=== PATIENT | female | born 2005 | race Caucasian/White ===

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

== ENCOUNTER 2025-08-10 14:05 | Emergency (ER) | payer BC, SELFPAY ==
[2025-08-10 14:15] VITALS: BP 154/93; PULSE 90; RESP 16; TEMP 36.9; O2SAT 98; BMI 24.0
--- NOTE | 2025-08-10 14:24 | ED_ITS ---
HPI - Abdominal Pain General Time Seen by Provider: 14:26 Date Seen: 08/10/25 Chief Complaint: Abdominal Pain Stated Complaint: L abdomen/back pain Time Seen by Provider: 08/10/25 14:15 Source: patient and RN notes reviewed Mode of arrival: ambulatory Limitations: no limitations History of Present Illness HPI narrative: This 19-year-old female is coming in with left lower abdominal and back pain started about 3 hours ago. It is associated with nausea but no vomiting. She notes pain increases with standing and walking. She is on oral contraceptives. She just finished her menstrual cycle yesterday. She has had no prior abdominal surgeries, no history of kidney stones or ovarian cyst. Mom whom is present has had both kidney stones and ovarian cysts. We did review that it usually contraceptives help decrease ovarian cyst development. Mom states she has polycystic ovarian syndrome. Patient has noted no fevers. Symptoms started this morning, she did have a bowel movement around 11:00 a.m. and felt a little better but it has not overall diminished her pain much. She did have a light lunch, states she did feel hungry, eating did not worsen her symptoms. She has noted no diarrhea. She has noted no change in urination such as dysuria, hematuria, no urinary changes. Pain is in the left lower abdomen to left mid abdomen, will radiate into the back, radiate down towards the pelvis and sometimes more towards the upper center part of her abdomen. MD elicited complaint: abdominal pain Related Data Home Medications ?Medication ?Instructions ?Recorded ?Confirmed norelgestromin 150 mcg-e.estradiol patch 07/14/2212/28 35 mcg/24 hr weekly transderm patch (Xulane) Allergies Allergy/AdvReac Type Severity Reaction Status Date / Time No Known Drug Allergies Allergy Verified 08/10/25 14:13 Review of Systems Status of ROS Reports: 6 or more systems reviewed and unremarkable except as noted in History and below [facility] Social History Smoking Status: Never smoker Do you use any of these nicotine containing products: None How often do you have a drink containing alcohol: never AUDIT-C Alcohol total score: 0 Non-prescribed substance use: denies use Exam Const: Vital Signs, click to edit/add: Vital Signs - 24 hr 08/10/25 14:15 Temperature 98.4 F Pulse Rate [Pulse Oximeter] 90 Respiratory Rate 16 Blood Pressure [Ri ght Upper Arm] 154/93 H Pulse Oximetry 98 Oxygen Delivery Me thod Room Air This 19-year-old female is alert, interactive, no apparent distress. Sitting in the bed in exam room 7. She is very pleasant, speech is normal. Sclera clear, symmetric facial function. Lungs are clear, good air entry, wheeze or crackles, no tachypnea. CV regular rate and rhythm, no murmur. Abdomen is soft, nondistended, no organomegaly, normal bowel sounds. She has left mid to lower quadrant abdominal tenderness, no CVA tenderness. There is no rebound or guarding. I do not feel any masses. Patient was ambulatory into the ED of her own accord. Documenting provider has reviewed patient's vital signs: yes Course Course ED Course: Urinalysis was appropriately collected in triage, awaiting that result. They understand if there is hematuria that we may proceed with CT imaging looking for kidney stone. Her being on the contraceptive patch makes this less likely to be ovarian pathology but may need to consider that. We are going to place an IV, get some basic labs, see what her white count is another labs. May need to consider imaging such as ultrasound if we end up thinking this is more variant pathology verses flat and upright thinking more along the lines of constipation or CT imaging for intra-abdominal pathology. She certainly could have kidney stones, on the left side is less likely to be something like appendicitis but the could be atypical lie. We will just have to see what her labs and urinalysis show to direct us for further imaging. Reevaluation(s) Time of Reevaluation #1: 15:48 Reevaluation #1: Have ordered abdominal imaging with flat and upright x-ray given patient's completely normal laboratory evaluation. Time of Reevaluation #2: 16:36 Reevaluation #2: Have provided a copy of the abdominal imaging, we did review constipation as a possible etiology of her symptoms. Her labs are completely reassuring, no concerning changes with this. We did discuss the possibility of missing early intra-abdominal etiologies but with this being left-sided abdominal pain, doubt were missing atypical appendicitis. In her age group, makes things like diverticulitis less likely. At this time, we have discussed a trial of observation outpatient with use of MiraLax for treatment of constipation. It is fine to try some Tylenol or ibuprofen. We have discussed signs and symptoms for referral which should bring her back and imaging with CT should be considered. They are comfortable with this plan and we will discharge to home at this time. Vital Signs Vital signs: Initial Vital Signs Temperature 98.4 F 08/10/25 14:15 Temperature Source Temporal Artery Scan 08/10/25 14:15 Pulse Rate 90 08/10/25 14:15 Respiratory Rate 16 08/10/25 14:15 Blood Pressure 154/93 H 08/10/25 14:15 Blood Pressure Mean 113 H 08/10/25 14:15 Pulse Oximetry 98 08/10/25 14:15 Oxygen Delivery Method Room Air 08/10/25 14:15 Vital Signs Temperature 98.4 F 08/10/25 14:15 Pulse Rate 90 08/10/25 14:15 Respiratory Rate 16 08/10/25 14:15 Blood Pressure 154/93 H 08/10/25 14:15 Pulse Oximetry 98 08/10/25 14:15 Oxygen Delivery Method Room Air 08/10/25 14:15 Temperature 98.4 F 08/10/25 14:15 Pulse Rate 90 08/10/25 14:15 Respiratory Rate 16 08/10/25 14:15 Blood Pressure 154/93 H 08/10/25 14:15 Pulse Oximetry 98 08/10/25 14:15 Oxygen Delivery Method Room Air 08/10/25 14:15 MDM - Abdominal Pain Lab Data Attestation: I reviewed the patient's lab results. Labs: Lab Results 08/10/25 08/10/25 Range/Units 14:14 14:58 WBC 7.56 (4.50-11.00) K/uL RBC 4.96 (4.00-5.20) m/uL Hgb 14.0 (12.0-16.0) gm/dL Hct 42.3 (33.0-51.0) % MCV 85 (80-100) fL MCH 28 (26-34) pg MCHC 33 (32-36) gm/dL RDW Coeff of Carloz 11.9 (11.5-15.5) % Plt Count 330 (140-440) K/uL Neut % (Auto) 61.1 (42.0-72.0) % Lymph % (Auto) 29.1 (20-44) % Howard % (Auto) 8.5 (0.0-11.0) % Eos % (Auto) 0.8 (0.0-7.0) % Baso % (Auto) 0.4 (0.0-3.0) % Neut # (Auto) 4.62 (1.7-7.0) K/uL Lymph # (Auto) 2.20 (0.90-2.90) K/uL Howard # (Auto) 0.60 (0.00-0.90) K/UL Eos # (Auto) 0.06 (0.00-0.50) K/uL Baso # (Auto) 0.03 (0.00-0.30) K/uL Abs Immat Gran (auto) 0.01 (0.00-0.30) K/uL Imm/Tot Granulo (auto) 0.1 % Sodium 139 (135-149) mmol/L Potassium 4.5 (3.6-5.1) mmol/L Chloride 100 (96-114) mmol/L Carbon Dioxide 26 (20-32) mmol/L Anion Gap 13 (7-15) mEq/L BUN 5 (5-24) mg/dL Creatinine 0.6 (0.6-1.2) mg/dL Estimated Creat Clear 135.70 Estimated GFR 133 ml/min Glucose 92 (60-115) mg/dL Lactate 1.8 (0.5-1.9) mmol/L Calcium 9.4 (8.7-10.8) mg/dL Total Bilirubin 0.4 (0.1-1.5) mg/dL Direct Bilirubin 0.3 (0.0-0.5) mg/dL AST 27 (12-35) U/L ALT 28 (4-35) U/L Alkaline Phosphatase 66 (40-150) U/L C-Reactive Protein 0.8 (0.5-1.0) mg/dL Total Protein 7.8 (6.0-8.3) g/dL Albumin 4.6 (3.3-5.0) g/dL Lipase 45 (23-300) U/L Urine Color Light yellow (Yellow) Urine Appearance Clear (Clear) Urine pH 7.5 (5.0-8.5) Ur Specific [place] 1.020 (1.000-1.030) Urine Protein Negative (Negative) Urine Glucose (UA) Negative (Negative) Urine Ketones Negative (Negative) Urine Blood Trace-lysed A (Negative) Urine Nitrite Negative (Negative) Urine Bilirubin Negative (Negative) Urine Urobilinogen 0.2 (0.2-1.0) Ur Leukocyte Esterase Negative (Negative) Urine RBC 0-2 (0-2) Urine WBC 0-2 (0-5) Ur Squamous Epith Cells Few (None-Few) Urine Bacteria Few A (None) Imaging Data Abdominal x-ray: Attestation: I have reviewed the pertinent imaging results. My impression: Do see some stool within the colon, no obstructive pattern of bowel noted however. Radiologist's impression: Patient: WIL MAURO Facility:?[facility] Patient ID:?[id number] Site Patient ID:?[id number]. Site :?[id number] Study:?XRay-Abdomen/Pelvis 2 VIEWS-08/10/2025 4:04:25 PM Ordering Physician:?Diana Gates Final Report: Indication: Abdominal pain. Technique: Abdomen 2 view. Comparison: None. Findings/Impression: Bowel: Bowel pattern is normal. Moderate colonic stool burden. Soft tissues: No sign of free air. No sign of soft tissue mass. No suspicious calcifications. Bones: Unremarkable for age. Dictated by Yuan Ramirez MD @ 08/10/2025 4:20:26 PM (Electronic Signature) Discharge Plan Discharge Clinical Impression: Constipation Qualifiers: Constipation type: unspecified constipation type Qualified Code(s): K59.00 - Constipation, unspecified Patient Disposition: Home w/ Parent or Adult Condition: Stable Instructions: Constipation (ED), High Fiber Diet (ED), Acute Abdominal Pain (ED) Additional Instructions: Can try warm tub baths, heating pad, can help with abdominal cramping. Start MiraLax, use 1 capsule daily for goal of a soft but formed bowel movement daily. If you start having 2 loose of stools, can back down on the dosing of MiraLax. It is fine to use Tylenol or ibuprofen per bottle directions for discomfort. If your abdominal pain is worsening, develops fever or vomiting with abdominal pain, do need to seek re-evaluation. Activity Level: Activity as Tolerated Discharge Diet: Regular Prescriptions: No Action norelgestromin-ethin.estradiol [Xulane] 150-35 mcg/24 hr patch weekly Patient Comments: APPLY 1 PATCH ON DRY, CLEAN, HAIRLESS SKIN ONCE WEEKLY. Follow Up/Referrals: Tierney Hackett MD [Primary Care Provider, Family Practice] Stand Alone Forms: [employer] Info Instructions
[2025-08-10 14:27] LABS: Appearance Urine Clear (Clear)
[2025-08-10 15:05] LABS: Lactate* 1.8 mmol/L (0.5-1.9)
[2025-08-10 15:23] LABS: Hematocrit* 42.3 % (33.0-51.0); Hemoglobin* 14.0 gm/dL (12.0-16.0); Immature Granulocytes Abs Auto 0.01 K/uL (0.00-0.30); Immature Granulocytes Pct Auto 0.1 %; Lymphocytes Absolute Auto 2.20 K/uL (0.90-2.90); Mean Corpuscular HGB Conc 33 gm/dL (32-36); Mean Corpuscular Hemoglobin 28 pg (26-34); Mean Corpuscular Volume 85 fL (80-100); RDW Coefficient of Variation % 11.9 % (11.5-15.5); Red Blood Count* 4.96 m/uL (4.00-5.20); White Blood Count* 7.56 K/uL (4.50-11.00)
[2025-08-10 15:25] LABS: Albumin* 4.6 g/dL (3.3-5.0); Chloride* 100 mmol/L (96-114); Potassium* 4.5 mmol/L (3.6-5.1); Sodium* 139 mmol/L (135-149)
[2025-08-10 15:27] LABS: Blood Urea Nitrogen* 5 mg/dL (5-24); Creatinine* 0.6 mg/dL (0.6-1.2); Est. Creatinine Clearance* 135.70; Estimated Glomerular Filt Rate 133 ml/min
[2025-08-10 15:28] LABS: Alanine Aminotransferase* 28 U/L (4-35); Alkaline Phosphatase* 66 U/L (40-150); Anion Gap 13 mEq/L (7-15); Aspartate Amino Transferase* 27 U/L (12-35); Bilirubin Direct* 0.3 mg/dL (0.0-0.5); Bilirubin Total* 0.4 mg/dL (0.1-1.5); Calcium* 9.4 mg/dL (8.7-10.8); Carbon Dioxide* 26 mmol/L (20-32); Glucose* 92 mg/dL (60-115); Total Protein* 7.8 g/dL (6.0-8.3)
[2025-08-10 15:41] LABS: Slide Review Reflex No
--- NOTE | 2025-08-10 15:47 | CRLHL7_ITS ---
For Patients: As a result of the Century Cures Act, medical imaging exams and procedure reports are released immediately into your electronic medical record. You may view this report before your referring provider. If you have questions, please contact your health care provider. Indication: Abdominal pain. Technique: Abdomen 2 view. Comparison: None. Findings/Impression: Bowel: Bowel pattern is normal. Moderate colonic stool burden. Soft tissues: No sign of free air. No sign of soft tissue mass. No suspicious calcifications. Bones: Unremarkable for age. Dictated by Yuan Ramirez MD @ 08/10/2025 4:20:26 PM (Electronically Signed)
[2025-08-10 16:54] VITALS: BP 138/84; PULSE 95; RESP 18; TEMP 37; O2SAT 99
== END 2025-08-10 17:08 | disposition home or self-care (01) ==
PROVIDERS: Emergency Provider Family Medicine; PCP Family Medicine
DX: K59.00 Constipation, unspecified (principal)
CPT/HCPCS: 36415; 74019; 80048; 80076; 81001; 83605; 83690; 85025; 86140; 87086; 99284